=== PATIENT | female | born 1990 | race Caucasian/White ===

== ENCOUNTER 2018-01-13 18:15 | Emergency (ER) | payer OTHER ==
[~2018-01-13] VITALS: Ht 154.9 cm; Wt 81.2 kg
[2018-01-13 18:30] VITALS: Ht 154.9 cm; Wt 81.2 kg
[2018-01-13 20:45] VITALS: BP 112/64
== END 2018-01-13 20:45 | disposition home or self-care (01) ==
LOC: ED 18:15
DX: R51 Headache (principal); R11.0 Nausea; Z88.5 Allergy status to narcotic agent
CPT/HCPCS: J0780; J3030